=== PATIENT | female | born 1950 | race Caucasian/White ===

== ENCOUNTER 2022-03-18 17:29 | Observation (INO) | payer BC, MEDICARE ==
[~2022-03-18] VITALS: Ht 165.1 cm; Wt 117.9 kg
[2022-03-18 18:40] LABS: BASOPHILS % (AUTO) 0.3 % (0.0-5.0); EOSINOPHILS % (AUTO) 0.3 % (0.0-8.0); HEMATOCRIT 42.9 % (36-48); LYMPHOCYTES % (AUTO) 15.8 % (21.0-51.0); MEAN CORPUSCULAR HEMOGLOBIN 29.7 pg (27.0-33.0); MEAN CORPUSCULAR HGB CONC 33.1 g/dL (32.0-36.0); MEAN CORPUSCULAR VOLUME 89.7 fL (79-99); MONOCYTES % (AUTO) 15.7 % (3.0-13.0); NEUTROPHILS % (AUTO) 67.6 % (40.0-77.0); PLATELET COUNT (AUTO) 226 K/uL (130-400); RED BLOOD CELL COUNT(AUTO) 4.78 MIL/uL (4.00-5.50); RED CELL DISTRIBUTION WIDTH 13.3 % (11.0-15.5); WHITE BLOOD COUNT (AUTO) 9.5 K/uL (4.8-10.8)
[2022-03-18] MEDS: CLINDAMYCIN IVPB 600MG/50ML 50 ML IV SCH ×2 (18:49→21:00)
[2022-03-18 18:57] LABS: CREATININE 0.9 mg/dL (0.5-1.5); POTASSIUM 3.5 mmol/L (3.5-5.1)
[2022-03-18 19:02] LABS: ALBUMIN 3.9 g/dL (3.5-5.0); TOTAL PROTEIN, SERUM 7.3 g/dL (6.0-8.3)
[2022-03-18] MEDS ORDERED: ACETAMINOPHEN 325 MG TAB PO PRN ×2 (21:00)
[2022-03-18] MEDS ORDERED: ONDANSETRON 4MG INJ IV PRN (21:00)
[2022-03-18 22:30] VITALS: BP 152/76
[2022-03-18] MEDS ORDERED: CART1TAB5 PO (23:27)
[2022-03-18] MEDS ORDERED: MEMA10TA55 PO (23:27)
[2022-03-18] MEDS ORDERED: ASCO100033 PO (23:27)
[2022-03-18] MEDS ORDERED: EMPA25TA PO (23:27)
[2022-03-18] MEDS ORDERED: DESL5TAB45 PO (23:27)
[2022-03-18] MEDS ORDERED: BISO10TA16 PO (23:27)
[2022-03-18] MEDS ORDERED: ZINC50TA64 PO (23:27)
[2022-03-18] MEDS ORDERED: ISOS30TA92 PO (23:27)
[2022-03-18] MEDS ORDERED: OMEP20CA12 PO (23:27)
[2022-03-18] MEDS ORDERED: CLOP75TA32 PO (23:27)
[2022-03-18] MEDS ORDERED: LEVO100T4 PO (23:27)
[2022-03-18] MEDS ORDERED: COLC0.6T73 PO (23:27)
[2022-03-18] MEDS ORDERED: LUTE1CAP4 PO (23:27)
[2022-03-18] MEDS ORDERED: ESCI20TA38 PO (23:27)
[2022-03-18] MEDS ORDERED: ALIR150P6 SQ (23:27)
[2022-03-18] MEDS ORDERED: NAPR1TAB28 PO (23:27)
[2022-03-18] MEDS ORDERED: [UNRECOGNIZED DRUG - OTHER] PO (23:27)
[2022-03-18] MEDS ORDERED: UBIQ100C2 PO (23:27)
[2022-03-18] MEDS ORDERED: HYDR25TA PO (23:27)
[2022-03-18] MEDS ORDERED: INSU100C6 SQ (23:29)
[2022-03-19 00:41] LABS: APPEARANCE,URINE CLEAR (CLEAR); BILIRUBIN,URINE NEGATIVE (NEGATIVE); COLOR,URINE LIGHT-YELLOW (YELLOW); GLUCOSE, URINE (UA) >=1000 mg/dL (NEGATIVE); KETONES,URINE 20 mg/dL (NEGATIVE); LEUKOCYTE ESTERASE ,URINE NEGATIVE Leu/uL (NEGATIVE); NITRATE,URINE NEGATIVE (NEGATIVE); OCCULT BLOOD,URINE NEGATIVE (NEGATIVE); PH,URINE 5.5 (5.0-8.0); PROTEIN,URINE NEGATIVE (NEGATIVE); UROBILINOGEN,URINE 0.2 mg/dL (0.2-1.0)
[2022-03-19 00:44] LABS: MUCUS,URINE RARE LPF (None Seen); SQUAMOUS EPITHELIAL CELL,UR RARE /HPF (0-2)
[2022-03-19 01:07] VITALS: BP 137/71
[2022-03-19] MEDS: CLINDAMYCIN IVPB 600MG/50ML 50 ML IV SCH ×5 (02:13→19:29)
[2022-03-19 04:30] LABS: BASOPHILS % (AUTO) 0.3 % (0.0-5.0); EOSINOPHILS % (AUTO) 0.5 % (0.0-8.0); HEMATOCRIT 38.9 % (36-48); LYMPHOCYTES % (AUTO) 22.4 % (21.0-51.0); MEAN CORPUSCULAR HEMOGLOBIN 29.5 pg (27.0-33.0); MEAN CORPUSCULAR HGB CONC 32.1 g/dL (32.0-36.0); MEAN CORPUSCULAR VOLUME 91.7 fL (79-99); NEUTROPHILS % (AUTO) 58.3 % (40.0-77.0); PLATELET COUNT (AUTO) 205 K/uL (130-400); RED BLOOD CELL COUNT(AUTO) 4.24 MIL/uL (4.00-5.50); RED CELL DISTRIBUTION WIDTH 13.3 % (11.0-15.5); WHITE BLOOD COUNT (AUTO) 7.9 K/uL (4.8-10.8)
[2022-03-19 04:52] LABS: CREATININE 0.9 mg/dL (0.5-1.5); MAGNESIUM 2.1 mg/dL (1.80-2.40); PHOSPHORUS 4.2 mg/dL (2.5-4.9); POTASSIUM 3.6 mmol/L (3.5-5.1)
[2022-03-19 04:54] VITALS: BP 122/56
[2022-03-19 07:30] VITALS: BP 107/58
[2022-03-19] MEDS: ENOXAPARIN SODIUM 40 MG/0.4 ML SYRINGE SQ SCH (09:00)
[2022-03-19] MEDS: FAMOTIDINE 20MG TAB PO SCH (09:00)
[2022-03-19] MEDS: HYDROMORPHONE 0.5 MG SYG (0.5MG/0.5ML) IV PRN (11:17)
[2022-03-19 11:30] VITALS: BP 131/70
[2022-03-19] MEDS: CLOPIDOGREL 75MG TAB PO SCH (13:29)
[2022-03-19 15:10] VITALS: BP 129/72
[2022-03-19] MEDS ORDERED: PHARMACY COMMUNICATION MISC SCH ×2 (15:30→17:30)
[2022-03-19] MEDS: CEFUROXIME SODIUM 1.5 GM VIAL IVP SCH (18:12)
[2022-03-19] MEDS: MEMANTINE HCL 5 MG TABLET PO SCH (19:36)
[2022-03-19 20:56] VITALS: BP 124/57
[2022-03-20 00:24] VITALS: BP 137/59
[2022-03-20] MEDS: CEFUROXIME SODIUM 1.5 GM VIAL IVP SCH ×3 (00:52→17:13)
[2022-03-20] MEDS: CLINDAMYCIN IVPB 600MG/50ML 50 ML IV SCH ×3 (03:44→21:07)
[2022-03-20 03:56] VITALS: BP 121/55
[2022-03-20] MEDS: LEVOTHYROXINE 100 MCG TABLET PO SCH (05:20)
[2022-03-20 08:00] VITALS: BP 106/50
[2022-03-20] MEDS: FAMOTIDINE 20MG TAB PO SCH (09:00)
[2022-03-20] MEDS: ASCORBIC ACID 500 MG TAB PO SCH (09:00)
[2022-03-20] MEDS: ENOXAPARIN SODIUM 40 MG/0.4 ML SYRINGE SQ SCH (09:00)
[2022-03-20] MEDS: DESLORATADINE PO SCH (09:00)
[2022-03-20] MEDS: COLCHICINE 0.6 MG TABLET PO SCH (09:00)
[2022-03-20] MEDS: HYDROCHLOROTHIAZIDE 25 MG TABLET PO SCH (09:00)
[2022-03-20] MEDS: MEMANTINE HCL 5 MG TABLET PO SCH ×2 (09:00→21:00)
[2022-03-20] MEDS: BISOPROLOL FUMARATE 10 MG PO SCH (09:00)
[2022-03-20] MEDS: ISOSORBIDE MONO 30MG SR TAB PO SCH (09:00)
[2022-03-20 12:00] VITALS: BP 141/66
[2022-03-20 16:00] VITALS: BP 144/59
[2022-03-20 20:00] VITALS: BP 124/68
[2022-03-21] VITALS: BP 151/79
[2022-03-21] MEDS: CEFUROXIME SODIUM 1.5 GM VIAL IVP SCH ×2 (00:27→10:03)
[2022-03-21] MEDS: HYDROMORPHONE 0.5 MG SYG (0.5MG/0.5ML) IV PRN (02:07)
[2022-03-21 04:00] VITALS: BP 111/59
[2022-03-21 04:34] LABS: HEMATOCRIT 37.6 % (36-48); MEAN CORPUSCULAR HEMOGLOBIN 29.6 pg (27.0-33.0); MEAN CORPUSCULAR HGB CONC 32.7 g/dL (32.0-36.0); MEAN CORPUSCULAR VOLUME 90.4 fL (79-99); RED BLOOD CELL COUNT(AUTO) 4.16 MIL/uL (4.00-5.50); WHITE BLOOD COUNT (AUTO) 4.5 K/uL (4.8-10.8)
[2022-03-21 04:53] LABS: POTASSIUM 3.4 mmol/L (3.5-5.1); TOTAL PROTEIN, SERUM 6.1 g/dL (6.0-8.3)
[2022-03-21] MEDS: CLINDAMYCIN IVPB 600MG/50ML 50 ML IV SCH ×2 (05:35→12:18)
[2022-03-21] MEDS: LEVOTHYROXINE 100 MCG TABLET PO SCH (06:02)
[2022-03-21 08:00] VITALS: BP 111/50
[2022-03-21] MEDS: BISOPROLOL FUMARATE 10 MG PO SCH (09:00)
[2022-03-21] MEDS: HYDROCHLOROTHIAZIDE 25 MG TABLET PO SCH (09:00)
[2022-03-21] MEDS: FAMOTIDINE 20MG TAB PO SCH (09:00)
[2022-03-21] MEDS: ASCORBIC ACID 500 MG TAB PO SCH (09:00)
[2022-03-21] MEDS: DESLORATADINE PO SCH (09:00)
[2022-03-21] MEDS: MEMANTINE HCL 5 MG TABLET PO SCH (09:00)
[2022-03-21] MEDS: CLOPIDOGREL 75MG TAB PO SCH (09:00)
[2022-03-21] MEDS: ISOSORBIDE MONO 30MG SR TAB PO SCH (09:00)
[2022-03-21] MEDS: ENOXAPARIN SODIUM 40 MG/0.4 ML SYRINGE SQ SCH (09:00)
[2022-03-21] MEDS: COLCHICINE 0.6 MG TABLET PO SCH (09:00)
[2022-03-21] MEDS ORDERED: CLIN-141 PO (10:08)
[2022-03-21 12:00] VITALS: BP 122/43
== END 2022-03-21 16:30 | disposition home or self-care (01) ==
LOC: EDH 17:29 → EDHIP 20:07 → INTOOBSV 20:07 → 4DH 22:42
PROVIDERS: ADMIT Hospitalist; ATTEND Hospitalist
DX: S51.852A Open bite of left forearm, initial encounter (principal); L03.114 Cellulitis of left upper limb; I10 Essential (primary) hypertension; E10.9 Type 1 diabetes mellitus without complications; E78.5 Hyperlipidemia, unspecified; Z51.5 Encounter for palliative care; Z90.12 Acquired absence of left breast and nipple; Z90.710 Acquired absence of both cervix and uterus; Z96.41 Presence of insulin pump (external) (internal); W55.01XA Bitten by cat, initial encounter; Y93.89 Activity, other specified; Y92.89 Other specified places as the place of occurrence of the external cause; Y99.8 Other external cause status
CPT/HCPCS: 99284; 80053 ×2; 85025 ×2; 87040 ×2; 83605; 36415 ×3; 76882; 96365; 84145; 96366 ×3; 96375; 83735; 84100; 80048; 81001; 96376 ×2; 87070; 85027; J3490 ×9; J0697 ×3; J1170 ×2; G0378 ×2; J1650